=== PATIENT | male | born 1985 | race Caucasian/White ===

== ENCOUNTER 2016-07-23 20:14 | Emergency (ER) | payer OTHER ==
[~2016-07-23] VITALS: Ht 188 cm; Wt 83.9 kg
[2016-07-23 21:17] VITALS: BP 133/62
== END 2016-07-23 22:12 | disposition home or self-care (01) ==
LOC: ER 20:17
DX: S62.317A Displaced fracture of base of fifth metacarpal bone, left hand, initial encounter for closed fracture (principal); V29.9XXA Motorcycle rider (driver) (passenger) injured in unspecified traffic accident, initial encounter; Y93.89 Activity, other specified; Y92.89 Other specified places as the place of occurrence of the external cause; Y99.8 Other external cause status
CPT/HCPCS: 29105; 73120; 99284; A4606; Z7610